=== PATIENT | female | born 1945 | race Caucasian/White ===

== ENCOUNTER → 2017-11-03 10:04 | Outpatient (CLI) | payer MEDICARE, SELFPAY ==
--- NOTE | 2017-11-03 | DI.US.S_ITS ---
PROCEDURE: US ABD AORTA ANEURYSM SCREEN INDICATIONS: AAA screening TECHNIQUE: Real time scanning was performed of the aorta and iliac arteries, with image documentation. COMPARISON: None. FINDINGS: Aorta: Proximal aortic diameter measures 2.3 cm. Mid-aorta measures 1.7 cm. Distal aortic diameter is 1.4 cm. Iliac arteries: Right common iliac artery measures 1.0 cm. Left common iliac artery measures 1.0 cm. IMPRESSION: No aneurysm found. Dictated by: Mookie Dee M.D. on 11/03/2017 at 11:02 Approved by: Mookie Dee M.D. on 11/03/2017 at 11:02
== END ==
PROVIDERS: PCP Specialist; Visit Provider Specialist
DX: Z13.6 Encounter for screening for cardiovascular disorders (principal)
CPT/HCPCS: 76706

== ENCOUNTER → 2022-04-01 12:52 | Outpatient (CLI) | payer MEDICARE, SELFPAY ==
--- NOTE | 2022-04-01 | DI.NM.S_ITS ---
PROCEDURE: NM EXERCISE TREADMILL NON NUC COMPARISON: None. INDICATIONS: CHEST PAIN FINDINGS: the patient exercised for 6 minutes and 1 second reaching 93% of maximum predicted heart rate (7.0 METs, MAXINE -11%). Appropriate BP response to exercise. Resting ECG showed sinus rhythm with mild ST depressions in the inferior leads and anterolateral leads. With exercise, ST segments showed no significant change. No ectopy. IMPRESSION: Low risk, normal treadmill ECG only stress test with good exercise tolerance (MAXINE -11%). Dictated by: Luz Marina Quinones MD on 04/02/2022 at 13:27 Approved by: Luz Marina Quinones MD on 04/02/2022 at 13:29
--- NOTE | 2022-04-01 | DI.ECHO.S_ITS ---
[facility]---------+ [facility] +---------+ : : [address] : [address] : : : : [id number] : : : : Phone: [phone]+ Echocardiogram Report + + :Name: NE RANGEL Study Date: 04/01/2022 Height: 65.5 in: :[facility] ReadingLocation: Weight: 135 lb : : Gender: Female BSA: 1.7 m2 : :: 1945 Age: 76 yrs BP: 134/76 mmHg: :Reason For Study: CHEST PAIN : :Ordering Physician: ANNE, : :MARIA GUADALUPE Performed By: Breanna Helton : :Referring: MARIA GUADALUPE RODRÍGUEZ : + + Interpretation Summary The ejection fraction is estimated to be 55-60%. There is mild mitral regurgitation. There is mild aortic regurgitation. There is mild to moderate tricuspid regurgitation. The right ventricular systolic pressure is estimated to be at least 28 mmHg based on an estimated right atrial pressure of 3 mm Hg. The ascending aorta is mildly enlarged. Procedure: A two-dimensional transthoracic echocardiogram with color flow and Doppler was performed. The study quality was technically adequate. There is no prior echocardiogram noted for this patient. The patient was in sinus rhythm with heart rates between 62-69 bpm during the exam. Left Ventricle: The left ventricle is normal in size and wall thickness. The ejection fraction is estimated to be 55-60%. Left ventricular wall motion is normal. Right Ventricle: The right ventricle is normal in size and function. Atria: The left atrium is severely dilated. The right atrium is mildly dilated. There is no Doppler evidence for an interatrial shunt. Mitral Valve: The mitral valve leaflets appear mildly thickened, but open well. There is mild mitral annular calcification. There is mild mitral regurgitation. Aortic Valve: The aortic valve is trileaflet. The aortic valve is slightly calcified. The aortic valve opens well. There is no aortic valve stenosis. There is mild aortic regurgitation. Tricuspid Valve: The tricuspid valve is normal in structure and function. There is mild to moderate tricuspid regurgitation. The right ventricular systolic pressure is estimated to be at least 28 mmHg based on an estimated right atrial pressure of 3 mm Hg. Pulmonic Valve: The pulmonic valve is not well seen, but is grossly normal. There is trace pulmonic regurgitation. Great Vessels: The aortic root is normal size. The ascending aorta is mildly enlarged. The IVC is of normal diameter and collapses greater than 50% with a sniff. This suggests a low right atrial pressure of 3 mm Hg. Pericardium/ Pleura There is no pericardial effusion. There is no pleural effusion. MMode/2D Measurements & Calculations LVIDd: 4.8 cm LVOT diam: 2.2 cm LVIDs: 3.5 cm Ao root diam: 3.3 cm FS: 27.7 % asc Aorta Diam: 3.9 cm EPSS: 0.95 cm Ao Arch Diam (Prox Trans): 2.8 cm IVSd: 0.76 cm LVPWd: 0.86 cm LV balbuena. diameter/BSA (cm/m^2): 2.8 LV sys. diameter/BSA (cm/m^2): 2.1 LA A2 area: 26.5 cm2 RA long axis: 5.9 cm LA A4 area: 23.2 cm2 RA area: 21.7 cm2 LA length (vol): 5.8 cm RA vol: 68.0 ml LA vol: 90.1 ml RA : 40.4 ml/m2 LA vol index: 53.5 ml/m2 IVC diam: 1.7 cm RVD1 (basal): 3.8 cm RVD2 (mid): 3.1 cm TAPSE: 2.7 cm Doppler Measurements & Calculations Ao V2 max: 170.7 cm/sec LVOT Max Clifton: 95.6 cm/sec Ao V2 mean: 114.6 cm/sec LV V1 max P.7 mmHg Ao max P.7 mmHg LV V1 VTI: 21.8 cm Ao mean P.0 mmHg CHERRIE(I,D): 2.0 cm2 Ao V2 VTI: 41.0 cm CHERRIE(V,D): 2.1 cm2 sev ratio: 0.53 CHERRIE indexed to BSA (cm^2/m^2): 1.2 MV E max clifton: 96.4 cm/sec TR max clifton: 249.2 cm/sec MV A max clifton: 40.4 cm/sec TR max P.8 mmHg MV E/A: 2.4 PA V2 max: 102.3 cm/sec Med Peak E' Clifton: 7.6 cm/sec PA V2 mean: 73.4 cm/sec E/E' med: 12.7 PA mean P.4 mmHg Lat Peak E' Clifton: 10.6 cm/sec PA pr(Accel): 19.1 mmHg E/E' lat: 9.1 E/e' average: 10.9 MV dec time: 0.19 sec SV(LVOT): 82.8 ml Reading Physician:03:18 PM
[2022-04-01 14:04] LABS: COVID19 -Nasal RAPID Negative (Negative)
== END ==
PROVIDERS: PCP Student in an Organized Health Care Education/Training Program; Referring Provider Student in an Organized Health Care Education/Training Program; Visit Provider Student in an Organized Health Care Education/Training Program
DX: I08.3 Combined rheumatic disorders of mitral, aortic and tricuspid valves (principal); I77.89 Other specified disorders of arteries and arterioles; R07.9 Chest pain, unspecified; Z20.822 Contact with and (suspected) exposure to COVID-19
CPT/HCPCS: 87635; 93017; 93306